=== PATIENT | male | born 1975 | race Caucasian/White ===

== ENCOUNTER → 2017-02-22 | Outpatient (CLI) | payer SELFPAY ==
[2017-02-22 12:37] LABS: CALCIUM 9.3 mg/dL (8.4-10.2); CREATININE, serum 0.69 mg/dL (0.66-1.25); POTASSIUM 4.5 mmol/L (3.4-5.0)
== END ==
LOC: COL.LAB 11:58
DX: E11.9 Type 2 diabetes mellitus without complications (principal); I10 Essential (primary) hypertension; E78.2 Mixed hyperlipidemia

== ENCOUNTER → 2020-08-31 | Outpatient (CLI) | payer SELFPAY | LOC: COL.RAD 07:32 | DX: Z01.812 Encounter for preprocedural laboratory examination (principal); Z85.528 Personal history of other malignant neoplasm of kidney; Z98.890 Other specified postprocedural states | CPT/HCPCS: Q9967 ==

== ENCOUNTER → 2021-03-12 | Outpatient (CLI) | payer SELFPAY ==
[2021-03-12 11:58] LABS: ALBUMIN 4.6 gm/dL (3.5-5.0); BILIRUBIN,TOTAL 0.8 mg/dL (0.0-1.0); CALCIUM 9.7 mg/dL (8.4-10.2); CREATININE, serum 0.91 (0.66-1.25); POTASSIUM 4.3 mmol/L (3.4-5.0); TOTAL PROTEIN 7.6 gm/dL (6.4-8.2)
[2021-03-12 12:30] LABS: TSH w REFLEX 0.332 uIU/mL (0.465-4.680)
== END ==
LOC: COL.LAB 10:50
PROVIDERS: Internal Medicine
DX: E11.9 Type 2 diabetes mellitus without complications (principal); E78.49 Other hyperlipidemia

== ENCOUNTER 2022-04-21 10:07 | Outpatient (CLI) | payer SELFPAY ==
[~2022-04-21] VITALS: Ht 172.7 cm; Wt 118.0 kg
[2022-04-21 10:26] VITALS: BP 99/60; PULSE 90
[2022-04-21 10:45] VITALS: BP 111/64; PULSE 96; TEMP 98.4
[2022-04-21 11:00] VITALS: BP 111/69; PULSE 94
[2022-04-21] MEDS ORDERED: CRESTOR20 MG PO (11:04)
[2022-04-21] MEDS ORDERED: KRILL OIL 1,001 EAC1 PO (11:04)
[2022-04-21] MEDS ORDERED: INDERAL 20MG20 MG PO (11:04)
[2022-04-21] MEDS ORDERED: ASPIRIN E.C. 8181 MG PO (11:04)
[2022-04-21] MEDS ORDERED: DESYREL 50MG50 MG PO (11:05)
[2022-04-21] MEDS ORDERED: LOTENSIN HCT 201 TAB PO (11:05)
[2022-04-21] MEDS ORDERED: VIIBRYD40 MG PO (11:05)
[2022-04-21] MEDS ORDERED: OZEMPIC1 MG/0.71 SQ (11:06)
[2022-04-21] MEDS ORDERED: ONE-A-DAY ESSE1 EACH PO (11:07)
[2022-04-21] MEDS ORDERED: BUSPAR DIVIDOSE15 MG PO (11:07)
[2022-04-21] MEDS ORDERED: TURMERIC500 MG PO (11:08)
[2022-04-21] MEDS ORDERED: MASON NATURAL2000 IU PO (11:08)
[2022-04-21] MEDS ORDERED: PROBIOTIC-MAJOR PO (11:08)
[2022-04-21 11:15] VITALS: BP 116/60; PULSE 92
[2022-04-21 11:30] VITALS: BP 117/68; PULSE 93
[2022-04-21 11:45] VITALS: BP 111/65; PULSE 92
--- NOTE | 2022-04-21 11:55 | NUR ---
Pt tolerated BEB infusion and 1 hr observation period without issue. IV DC'd. Pt escorted out to ED entrance with steady gait.
== END 2022-04-21 11:55 | disposition home or self-care (01) ==
LOC: EUO 10:07
DX: Z20.822 Contact with and (suspected) exposure to COVID-19 (principal)
CPT/HCPCS: M0222; Q0222

== ENCOUNTER 2022-07-08 06:30 | Day surgery (SDC) | payer SELFPAY ==
[~2022-07-08] VITALS: Ht 170.2 cm; Wt 127.7 kg
[~2022-07-08 06:30] MED LIST: ASPIRIN E.C. 8181 MG PO; BUSPAR DIVIDOSE15 MG PO; CRESTOR20 MG PO; DESYREL 50MG50 MG PO; INDERAL 20MG20 MG PO; KRILL OIL 1,001 EAC1 PO; LOTENSIN HCT 201 TAB PO; MASON NATURAL2000 IU PO; ONE-A-DAY ESSE1 EACH PO; OZEMPIC1 MG/0.71 SQ; PROBIOTIC-MAJOR PO; TURMERIC500 MG PO; VIIBRYD40 MG PO
[2022-07-08] MEDS ORDERED: ATARAX 10MG10 MG/TAB PO (06:52)
[2022-07-08 07:00] VITALS: BP 129/85; PULSE 85; TEMP 97.1
--- NOTE | 2022-07-08 07:37 | NUR ---
0725 - PT was taken to the OR by Mariluz MORENO
[2022-07-08 08:12] VITALS: BP 110/62; PULSE 85; TEMP 97.4
--- NOTE | 2022-07-08 08:18 | NUR ---
0812 - PT arrives from procedure w/ COUNTER WAITER and CUSTOMER PROGRAM MANAGER. PT A&Ox3; denies pain/nausea. Monitors applied and VSS. Verbal room report obtained. PT is sweaty and was assisted w/ repositioning in bed by RN. Snack and drink provided per PT request. PT oriented to room and call frias, within reach if needed; non-slip socks are on and side rails x2. PT requested RN contact family.
[2022-07-08 08:27] VITALS: BP 114/64; PULSE 86
--- NOTE | 2022-07-08 08:27 | NUR ---
0827 - VSS. PT has finished snack and drink and expressed desire to be discharged; is tolerating well. Continues to deny nasuea. Call frias remains within reach and side rails x2. RN contacted who states they would like to wait in the car for PT.
[2022-07-08 08:42] VITALS: BP 129/85; PULSE 82
--- NOTE | 2022-07-08 08:45 | NUR ---
0840 - VSS. IV and monitors discontinued. Catheter tip intact and pressure bandage applied. NO redness or swelling noted. DC instructions and educational material reviewed w/ PT who verbalized understanding and signed the related paperwork; questions answered to PT satisfaction. PT refused RN assistance changing into personal clothes; call frias remains within reach and non-slip socks are on.
--- NOTE | 2022-07-08 09:16 | NUR ---
0850 - PT dismissed from [facility] [place] to the PT entrence by Soha MORENO. PT has DC packet and personal belongings and was transferred into the care of his , who is driving private car.
== END 2022-07-08 08:55 | disposition home or self-care (01) ==
LOC: SDCO 06:30
DX: Z12.11 Encounter for screening for malignant neoplasm of colon (principal); K63.5 Polyp of colon; Z87.891 Personal history of nicotine dependence; Z86.16 Personal history of COVID-19
CPT/HCPCS: J2704; J7120